=== PATIENT | male | born 1990 | race Caucasian/White ===

== ENCOUNTER 2017-03-24 22:13 | Emergency (ER) | payer MEDICAID, OTHER, SELFPAY ==
[~2017-03-24] VITALS: Ht 182.9 cm; Wt 74.9 kg
[2017-03-24] MEDS ORDERED: KETOROLAC 30 MG/1 ML ONE (22:46)
[2017-03-24] MEDS ORDERED: KETOROLAC 30 MG/1 ML IM ONE (23:00)
[2017-03-24 23:31] LABS: ASPARTATE AMINO TRANSFERASE 40 U/L (15-37); BLOOD UREA NITROGEN 19 mg/dL (7-18)
[2017-03-24 23:59] VITALS: BP 110/71
== END 2017-03-25 | disposition home or self-care (01) ==
LOC: ED 23:05
DX: R53.1 Weakness (principal); F17.200 Nicotine dependence, unspecified, uncomplicated; F15.10 Other stimulant abuse, uncomplicated
CPT/HCPCS: 36415; 80053; 85025; 87040; 96372; 99284; J1885

== ENCOUNTER 2017-04-10 07:57 | Emergency (ER) | payer MEDICAID ==
[~2017-04-10] VITALS: Ht 188 cm; Wt 71.7 kg
[2017-04-10 08:02] VITALS: BP 96/53
[2017-04-10 08:58] LABS: ASPARTATE AMINO TRANSFERASE 65 U/L (15-37); BLOOD UREA NITROGEN 24 mg/dL (7-18)
[2017-04-10] MEDS ORDERED: MAALOX/HYOSCYAMINE/LIDOCAINE 45 ML BOTTLE PO ONE (09:00)
== END 2017-04-10 09:39 | disposition home or self-care (01) ==
LOC: ED 08:28
DX: G89.29 Other chronic pain (principal); M79.672 Pain in left foot; M79.671 Pain in right foot; M25.572 Pain in left ankle and joints of left foot; M25.571 Pain in right ankle and joints of right foot; F15.10 Other stimulant abuse, uncomplicated
CPT/HCPCS: 36415; 80053; 85025; 99284